=== PATIENT | female | born 1965 | race Caucasian/White ===

== ENCOUNTER → 2020-12-14 14:44 | Outpatient (CLI) | payer OTHER, SELFPAY ==
[2020-12-14 15:34] LABS: COVID19 -Nasal RAPID Negative (Negative)
== END ==
PROVIDERS: Visit Provider Family Medicine
DX: Z01.812 Encounter for preprocedural laboratory examination (principal); Z20.822 Contact with and (suspected) exposure to COVID-19
CPT/HCPCS: 87635

== ENCOUNTER 2020-12-16 08:32 | Day surgery (SDC) | payer OTHER, SELFPAY ==
[2020-12-13 13:22] VITALS: BMI 28.2
[2020-12-16] VITALS (8 sets, daily range): BP systolic 103–139; BP diastolic 66–92; PULSE 63–81; RESP 13–20; TEMP 36–36.8; O2SAT 94–99; BMI 27.4
--- NOTE | 2020-12-16 | PATH_ITS ---
[facility] Accession Number: [id number] . 01 Material submitted: . body - LEFT SECOND INTERSPACE NEUROMA . 02 Diagnosis: Left Second Interspace, Neuroma, Biopsy: Nerve with perineural fibrosis, consistent with neuroma. Negative for malignancy. MRV 12/22/2020 1039 Local . 02 Electronically signed: . Leelee Sellers MD, Pathologist NPI- [id number] . 01 Gross description: . The specimen is received in formalin, labeled left second interspace neuroma, and consists of a 3.0 x 0.5 x 0.2 cm, kwon-white fragment of soft tissue which is inked blue, bisected, and entirely submitted in cassette A1. ([id number]) /[facility] 12/17/2020 1659 Local . 02 Pathologist provided ICD-10: M79.672, G57.62 . 02 CPT . 571959 Performed at: 01 [facility] [address], [place], [place] [id number] MD Luis Daniel Pichardo MD Phone: [phone] Performed at: 02 [facility] [address] [place], [place] [id number] MD Leelee Sellers MD Phone: [phone]
[2020-12-16] MEDS: LACTATED RINGERS 1,000 ML 100 ML IV (09:18)
--- NOTE | 2020-12-16 09:20 | P.OP_ITS ---
Operative Date/Time/Diagnoses Date of procedure: 12/16/20 Time of procedure: 09:21 Pre-op diagnosis: Left second interspace neuroma Post-op diagnosis: same Procedure & Clinicians Procedure: Left second interspace neuroma excision Same procedure as scheduled: Yes Indications: Painful neuroma symptoms left second interspace. Conservative effo rts have failed to alleviate her pain and she wished to have surgical intervention at this time. We spoke of the risks, potential complications, expected outcomes, and consent is given. There are no contraindications to the procedure at this time. Surgeon: Estella Daly Click Yes if Unassisted: Yes Anesthesia Type: General Operative Notes Closure Type: primary Specimen(s): other (Soft tissue specimen left 2nd interspace consistent with n euroma.) Estimated Blood Loss (mL): 10 Blood products transfused: none Tourniquet time (min): 20 Procedure in detail: The patient was brought to the operating room and placed on the operating table in the supine position. The tourniquet was placed about the left ankle. Well padded, appropriately aligned. After induction of general anesthesia the recorded injectable anesthesia medications were delivered to the left 2nd interspace of the foot. Next, the Foot and ankle were prepped and d raped in the usual aseptic manner. The tourniquet was inflated. After check of anesthesia, an incision was made over the dorsal 2nd interspace of the left foot. The incision was deepened through subcutaneous tissues, being careful to identify and retract all vital neural and vascular structures. All bleeders were cauterized and ligated as necessary. The deep transverse intermetatarsal ligament was pretty thin, but was able to be cleanly resected and this allowed visualization of the underlying interspace. Almost immediately, and enlarged shiny white linear structure was noted that was a little more enlarged near the metatarsal heads and then it for it to the 2nd and 3rd toes. This was out from being identified as a tendinous or ligamentous structure as well as arterial. After tracing it distally to the 2 toes and proximally, the nerve was cleanly resected at its most proximal aspect allowing it to retract into the musculature and the 2 distal locations as it fed into the digits. The area was irrigated with copious amounts of normal sterile saline. The specimen was passed from the table and sent to pathology for identification. The interspace was verified to show no additional nerve tissue and 4-0 Vicryl was used to repair subcutaneous tissues as the tourniquet was deflated and a prompt hyperemic response was seen to the foot. 4 mg of dexamethasone phosphate was delivered into the area where the nerve had been resected. Skin closure performed using 4-0 nylon. The area was dressed with a lightly compressive sterile dressing including Adaptic 4x4s, Kerlix, and Coban. She was placed in stockinette and an Rufus wrap as she forgot her postoperative shoe in the car. She was transferred to the PACU with vital signs stable and vascular status intact. Complications: none Post-operative Disposition: PACU Plan for aftercare: Following a period of postoperative monitoring, the patient be discharged home on written and oral postoperative instructions including keeping the dressing dry and intact, avoiding significant ambulation on the foot, and elevating the foot when seated home. DVT prevention techniques have been reviewed. For the 1st postoperative visit the dressing will be changed and close to the 3rd postoperative week we will likely remove the sutures. She is going to remove the Rufus wrap when she gets home and put on the postoperative shoe.
--- NOTE | 2020-12-16 09:20 | PM.PREOP ---
Pre-operative Note COVID-19 COVID-19 status: Negative Result date/Date tested (Pos, Neg/Pending): 12/14/20 Interval Note History & Physical reviewed/Exam performed by Physician: Yes Changes to H&P: No
[2020-12-16] MEDS: CEFAZOLIN 1 GM VIAL 2 GM IV (09:56)
--- NOTE | 2020-12-16 10:12 | SUR.OPER ---
Addendum entered by Yancy Torres R.N. 12/16/20 12:22: Bump placed under Left hip prior to sterile draping. Original Note: Supine on padded OR bed, head on pillow, arms secured on padded arm boards at <90 degrees abduction, legs uncrossed, safety belt at thigh, tape over blanket over right lower leg, gel pad under right hell. Left leg in control of the surgeon.
[2020-12-16] MEDS: BUPIVACAINE 0.5% (PF) VIAL 30 ML INJ (10:19)
[2020-12-16] MEDS: LIDOCAINE 2% INJ MDV 20 ML INJ (10:20)
[2020-12-16] MEDS: DEXAMETHASONE 10 MG/ML VIAL IV (10:35)
[2020-12-16] MEDS: OXYCODONE IR 5 MG TABLET PO (11:22)
--- NOTE | 2020-12-16 11:40 | SUR.PHASEII ---
Report given to Dorothy SCHULTZ.
== END 2020-12-16 12:40 | disposition admitted as inpatient to this hospital (09) ==
LOC: OR 08:34
PROVIDERS: PCP Nurse Practitioner; Referring Provider Podiatrist; Visit Provider Podiatrist
PROC: (CPT 64782; principal; 2020-12-16 10:15)
DX: G57.62 Lesion of plantar nerve, left lower limb (principal); M79.672 Pain in left foot; F41.9 Anxiety disorder, unspecified
CPT/HCPCS: 28080; J0690; J1100; J2405; J2704; J3010